=== PATIENT | male | born 1980 | race Caucasian/White ===

== ENCOUNTER 2017-08-11 10:23 | Inpatient (IN) | payer BC, OTHER ==
[~2017-08-11] VITALS: Ht 182.9 cm; Wt 74.8 kg
[2017-08-11] MEDS ORDERED: LORAZEPAM 2 MG/1 ML VIAL IM PRN (11:15)
[2017-08-11] MEDS ORDERED: THIAMINE HCL 200 MG/2 ML VIAL IM ONE (11:15)
[2017-08-11] MEDS ORDERED: NICOTINE 14 MG/24HR PATCH TD PRN (11:15)
[2017-08-11] MEDS ORDERED: CLONIDINE HCL 0.1 MG TABLET PO PRN (11:15)
[2017-08-11] MEDS ORDERED: MAGNESIUM HYDROXIDE 30 ML LIQUID UDC PO PRN (11:15)
[2017-08-11] MEDS ORDERED: ONDANSETRON ODT 4 MG TAB.RAPDIS SL PRN (11:15)
[2017-08-11] MEDS ORDERED: LOPERAMIDE HCL 2 MG CAPSULE PO PRN ×2 (11:15)
[2017-08-11] MEDS ORDERED: ONDANSETRON 4 MG/2 ML VIAL IM PRN (11:15)
[2017-08-11] MEDS ORDERED: MIRALAX 17 GM POWD.PACK PO PRN (11:15)
[2017-08-11] MEDS ORDERED: NICOTINE POLACRILEX 4 MG GUM-PK OF TEN BC PRN (11:15)
[2017-08-11] MEDS ORDERED: DICYCLOMINE HCL 20 MG TABLET PO PRN (11:15)
[2017-08-11] MEDS ORDERED: LORAZEPAM 1 MG TABLET PO PRN ×2 (11:15)
[2017-08-11] MEDS ORDERED: METHYL SALICYLATE/MENTHOL CREAM 28 GM TUBE TOP PRN (11:15)
[2017-08-11] MEDS ORDERED: MAG HYDROX/AL HYDROX/SIMETH 30 ML LIQUID UDC PO PRN (11:15)
[2017-08-11 11:54] LABS: BASOPHILS % (AUTO) 0.4 % (0.0-2.0); EOSINOPHILS # (AUTO) 0.1 K/uL (0.0-0.7); EOSINOPHILS % (AUTO) 1.4 % (0.0-7.0); LYMPHOCYTES # (AUTO) 2.4 K/uL (20.0-40.0); MONOCYTES # (AUTO) 0.7 K/uL (2.0-10.0); WHITE BLOOD COUNT (AUTO) 7.7 K/uL (3.6-10.2)
[2017-08-11 12:00] VITALS: BP 138/74
[2017-08-11 12:03] LABS: ETHANOL < 3 MG/DL (0-0)
[2017-08-11 12:04] LABS: HEMOGLOBIN 15.5 g/dL (12.5-16.3); LYMPHOCYTES % (AUTO) 31.4 % (20.5-51.5); MEAN CORPUSCULAR HEMOGLOBIN 35.3 uug (23.8-33.4); MEAN CORPUSCULAR HGB CONC 35 g/dL (32.5-36.3); MEAN CORPUSCULAR VOLUME 100.3 fL (73.0-96.2); NEUTROPHILS # (AUTO) 4.4 K/uL (1.8-8.9); NEUTROPHILS % (AUTO) 57.8 % (38.5-71.5); PLATELET COUNT (AUTO) 240 K/uL (152-348); RED BLOOD CELL COUNT(AUTO) 4.38 MIL/uL (4.06-5.63)
[2017-08-11 12:11] LABS: ALANINE AMINOTRANSFERASE 60 U/L (16-63); ALKALINE PHOSPHATASE 80 U/L (50-136); AMYLASE 104 U/L (25-115); ASPARTATE AMINOTRANSFERASE 30 U/L (15-37); BILIRUBIN,TOTAL 0.2 mg/dL (0.2-1.0); CARBON DIOXIDE 29 mmol/L (21-32); CHLORIDE 102 mmol/L (98-107); CREATININE 0.9 mg/dL (0.6-1.3); GLUCOSE 70 mg/dL (74-106); POTASSIUM 4.2 mmol/L (3.5-5.1); TOTAL PROTEIN, SERUM 7.9 g/dL (6.4-8.2); UREA NITROGEN, BLOOD 11 mg/dL (7-18)
[2017-08-11] MEDS: LORAZEPAM 1 MG TABLET PO SCH ×3 (12:14→21:00)
[2017-08-11 12:37] LABS: *AMPHETAMINE, URINE NEGATIVE (NEGATIVE); *BARBITURATE, URINE NEGATIVE (NEGATIVE); *CANNABINOID, URINE NEGATIVE (NEGATIVE); *COCCAINE, URINE NEGATIVE (NEGATIVE); *OPIATE, URINE NEGATIVE (NEGATIVE); *PHENCYCLIDINE SCREEN,URINE NEGATIVE (NEGATIVE)
[2017-08-11] MEDS: IBUPROFEN 600 MG TABLET PO PRN (14:56)
[2017-08-11] MEDS: ACETAMINOPHEN 325 MG TABLET PO PRN (14:56)
[2017-08-11 16:00] VITALS: BP 112/83
[2017-08-12 08:00] VITALS: BP 118/82
[2017-08-12] MEDS ORDERED: TUBERCULIN,PURIF.PROT.DERIV. 5 TU/0.1 ML TEST ID ONE (09:00)
[2017-08-12] MEDS: THIAMINE HCL 100 MG TABLET PO SCH (09:39)
[2017-08-12] MEDS: LORAZEPAM 1 MG TABLET PO SCH ×3 (09:39→20:41)
[2017-08-12] MEDS: FOLIC ACID 1 MG TABLET PO SCH (09:39)
[2017-08-12] MEDS: MULTIVITAMINS,THERAPEUTIC TABLET PO SCH (09:39)
[2017-08-12] MEDS: ACETAMINOPHEN 325 MG TABLET PO PRN ×2 (09:44→16:55)
[2017-08-12] MEDS: IBUPROFEN 600 MG TABLET PO PRN ×2 (09:44→16:55)
[2017-08-12 11:06] LABS: HEPATITIS B SURFACE AG Negative (Negative)
[2017-08-12 12:00] VITALS: BP 111/81
[2017-08-12 16:20] VITALS: BP 117/89
[2017-08-12 20:00] VITALS: BP 122/84
[2017-08-12] MEDS: MUPIROCIN 2% OINT 22 GM TUBE NS SCH (20:39)
[2017-08-13] VITALS: BP 109/61
[2017-08-13 04:00] VITALS: BP 131/63
[2017-08-13 08:00] VITALS: BP 123/85
[2017-08-13] MEDS: ACETAMINOPHEN 325 MG TABLET PO PRN ×2 (08:19→16:45)
[2017-08-13] MEDS: FOLIC ACID 1 MG TABLET PO SCH (08:19)
[2017-08-13] MEDS: THIAMINE HCL 100 MG TABLET PO SCH (08:19)
[2017-08-13] MEDS: MULTIVITAMINS,THERAPEUTIC TABLET PO SCH (08:19)
[2017-08-13] MEDS: IBUPROFEN 600 MG TABLET PO PRN (08:19)
[2017-08-13] MEDS: LORAZEPAM 1 MG TABLET PO SCH ×2 (08:19→12:55)
[2017-08-13] MEDS: MUPIROCIN 2% OINT 22 GM TUBE NS SCH ×2 (08:20→21:06)
[2017-08-13 12:00] VITALS: BP 117/80
[2017-08-13 16:00] VITALS: BP 143/89
[2017-08-13] MEDS: KETOROLAC TROMETHAMINE 30 MG INJ IM PRN (16:46)
[2017-08-13] MEDS ORDERED: LORAZEPAM 1 MG TABLET PO SCH ×2 (17:00→21:00)
[2017-08-13 20:00] VITALS: BP 111/74
[2017-08-14] VITALS: BP 112/68
[2017-08-14 04:00] VITALS: BP 100/52
[2017-08-14 08:02] VITALS: BP 129/84
[2017-08-14] MEDS: LORAZEPAM 1 MG TABLET PO SCH ×3 (08:52→21:11)
[2017-08-14] MEDS: MULTIVITAMINS,THERAPEUTIC TABLET PO SCH (08:52)
[2017-08-14] MEDS: MUPIROCIN 2% OINT 22 GM TUBE NS SCH ×2 (08:52→21:11)
[2017-08-14] MEDS: KETOROLAC TROMETHAMINE 30 MG INJ IM PRN ×2 (08:52→21:18)
[2017-08-14] MEDS: THIAMINE HCL 100 MG TABLET PO SCH (08:52)
[2017-08-14] MEDS: FOLIC ACID 1 MG TABLET PO SCH (08:52)
[2017-08-14] MEDS: FAMOTIDINE 20 MG TABLET PO SCH (08:57)
[2017-08-14 12:15] VITALS: BP 129/91
[2017-08-14 16:50] VITALS: BP 114/71
[2017-08-14 20:00] VITALS: BP 119/75
[2017-08-14] MEDS: diphenhydrAMINE 50 MG CAPSULE PO PRN (21:11)
[2017-08-15] VITALS: BP 95/51
[2017-08-15 04:00] VITALS: BP 90/60
[2017-08-15] MEDS: THIAMINE HCL 100 MG TABLET PO SCH (09:31)
[2017-08-15] MEDS: FOLIC ACID 1 MG TABLET PO SCH (09:31)
[2017-08-15] MEDS: LORAZEPAM 1 MG TABLET PO SCH ×2 (09:31→20:33)
[2017-08-15] MEDS: MULTIVITAMINS,THERAPEUTIC TABLET PO SCH (09:31)
[2017-08-15] MEDS: MUPIROCIN 2% OINT 22 GM TUBE NS SCH ×2 (09:31→20:33)
[2017-08-15] MEDS: FAMOTIDINE 20 MG TABLET PO SCH (09:31)
[2017-08-15] MEDS: KETOROLAC TROMETHAMINE 30 MG INJ IM PRN ×2 (09:37→20:34)
[2017-08-15 10:05] VITALS: BP 120/80
[2017-08-15 13:00] VITALS: BP 117/72
[2017-08-15 17:39] VITALS: BP 111/69
[2017-08-15 20:00] VITALS: BP 130/88
[2017-08-16] MEDS: THIAMINE HCL 100 MG TABLET PO SCH (08:27)
[2017-08-16] MEDS: FOLIC ACID 1 MG TABLET PO SCH (08:27)
[2017-08-16] MEDS: KETOROLAC TROMETHAMINE 30 MG INJ IM PRN ×2 (08:27→21:01)
[2017-08-16] MEDS: MULTIVITAMINS,THERAPEUTIC TABLET PO SCH (08:27)
[2017-08-16] MEDS: MUPIROCIN 2% OINT 22 GM TUBE NS SCH ×2 (08:28→20:59)
[2017-08-16 08:51] VITALS: BP 132/80
[2017-08-16] MEDS: FAMOTIDINE 20 MG TABLET PO SCH (08:59)
[2017-08-16] MEDS ORDERED: LORAZEPAM 1 MG TABLET PO SCH (09:00)
[2017-08-16 12:23] VITALS: BP 114/75
[2017-08-16] MEDS ORDERED: IBUP-1955 PO (15:41)
[2017-08-16] MEDS ORDERED: ACET325T53 PO (15:41)
[2017-08-16] MEDS ORDERED: DIPH50CA37 PO (15:41)
[2017-08-16] MEDS ORDERED: CLON0.1T14 PO (15:41)
[2017-08-16 16:56] VITALS: BP 117/77
[2017-08-16 20:00] VITALS: BP 138/84
[2017-08-16] MEDS: diphenhydrAMINE 50 MG CAPSULE PO PRN (21:00)
[2017-08-17 08:00] VITALS: BP 116/85
[2017-08-17] MEDS: FOLIC ACID 1 MG TABLET PO SCH (08:36)
[2017-08-17] MEDS: KETOROLAC TROMETHAMINE 30 MG INJ IM PRN (08:36)
[2017-08-17] MEDS: MULTIVITAMINS,THERAPEUTIC TABLET PO SCH (08:36)
[2017-08-17] MEDS: THIAMINE HCL 100 MG TABLET PO SCH (08:36)
[2017-08-17] MEDS: MUPIROCIN 2% OINT 22 GM TUBE NS SCH (08:37)
== END 2017-08-17 09:20 | disposition other institution (70) | DRG 895 ==
LOC: SRC 10:23
PROVIDERS: ADMIT Internal Medicine; ATTEND Internal Medicine
PROC: HZ41ZZZ Group Counseling for Substance Abuse Treatment, Behavioral (ICD-10-PCS; principal; 2017-08-11)
PROC: HZ2ZZZZ Detoxification Services for Substance Abuse Treatment (ICD-10-PCS; principal; 2017-08-11)
DX: F10.230 Alcohol dependence with withdrawal, uncomplicated (principal); I15.9 Secondary hypertension, unspecified; F17.210 Nicotine dependence, cigarettes, uncomplicated; Y90.9 Presence of alcohol in blood, level not specified; Z22.322 Carrier or suspected carrier of Methicillin resistant Staphylococcus aureus; Z81.1 Family history of alcohol abuse and dependence; S43.101A Unspecified dislocation of right acromioclavicular joint, initial encounter; V03.10XA Pedestrian on foot injured in collision with car, pick-up truck or van in traffic accident, initial encounter; Y93.01 Activity, walking, marching and hiking; Y92.410 Unspecified street and highway as the place of occurrence of the external cause; Z59.1 Inadequate housing; F32.9 Major depressive disorder, single episode, unspecified
CPT/HCPCS: 36415; 70030-TC; 73030; 80307; 83735; 85025; 86580; 86592; 86705; 86803; 87340; 87806; 97165; A4663; G0480; J1885; J3411; Q0163